=== PATIENT | female | born 1980 | race Caucasian/White ===

== ENCOUNTER → 2020-03-20 13:12 | Outpatient (ROUT) | payer OTHER, SELFPAY ==
[2020-03-20 13:48] LABS: COVID19 -Nasal RAPID Negative (Negative)
== END ==
PROVIDERS: Visit Provider Family Medicine
DX: Z20.828 Contact with and (suspected) exposure to other viral communicable diseases (principal)
CPT/HCPCS: 87635

== ENCOUNTER → 2020-07-19 13:20 | Outpatient (ROUT) | payer OTHER, SELFPAY ==
[2020-07-20 10:41] LABS: SARS CoV19 IgG Negative (Negative)
== END ==
PROVIDERS: Visit Provider Family Medicine
DX: Z20.822 Contact with and (suspected) exposure to COVID-19 (principal)
CPT/HCPCS: 86769

== ENCOUNTER → 2020-10-31 11:36 | Outpatient (ROUT) | payer OTHER, SELFPAY ==
[2020-10-31 12:20] LABS: COVID19 -Nasal RAPID Negative (Negative)
== END ==
PROVIDERS: Visit Provider Family Medicine
DX: Z20.822 Contact with and (suspected) exposure to COVID-19 (principal)
CPT/HCPCS: 87635

== ENCOUNTER → 2020-12-12 13:28 | Outpatient (ROUT) | payer OTHER, SELFPAY ==
[2020-12-12 13:58] LABS: COVID19 -Nasal RAPID Negative (Negative)
== END ==
PROVIDERS: Visit Provider Family Medicine
DX: Z20.822 Contact with and (suspected) exposure to COVID-19 (principal)
CPT/HCPCS: 87635

== ENCOUNTER → 2021-04-22 11:28 | Outpatient (ROUT) | payer OTHER, SELFPAY ==
[2021-04-22 12:13] LABS: COVID19 -Nasal RAPID Negative (Negative)
== END ==
PROVIDERS: Visit Provider Family Medicine
DX: Z20.822 Contact with and (suspected) exposure to COVID-19 (principal); R05.9 Cough, unspecified; J02.9 Acute pharyngitis, unspecified; R52 Pain, unspecified; R68.83 Chills (without fever)
CPT/HCPCS: 87635

== ENCOUNTER → 2021-08-05 10:09 | Outpatient (CLI) | payer OTHER, SELFPAY ==
--- NOTE | 2021-08-05 | DI.RAD.S_ITS ---
PROCEDURE: XR FINGER RT MIN 2V INDICATIONS: RIGHT MIDDLE FINGER INJURY TECHNIQUE: AP hand, 2 views of the 3rd finger(s) acquired. COMPARISON: None. FINDINGS: Bones: Comminuted fracture of the 3rd distal phalangeal tuft noted. Overlying soft tissue swelling without radiopaque foreign body. Soft tissues: No suspicious soft tissue calcifications. IMPRESSION: 3rd distal phalangeal tuft fracture Approved by: Eliu Mitchell M.D. on 08/05/2021 at 18:21
== END ==
PROVIDERS: PCP Family Medicine; Referring Provider Family Medicine; Visit Provider Family Medicine
DX: S62.632A Displaced fracture of distal phalanx of right middle finger, initial encounter for closed fracture (principal); X58.XXXA Exposure to other specified factors, initial encounter
CPT/HCPCS: 73140

== ENCOUNTER → 2023-01-19 12:39 | Outpatient (ROUT) | payer OTHER, SELFPAY ==
[2023-01-19 12:46] LABS: Add Manual Diff / Slide Review NO; Basophils Absolute Auto 0 /uL (0-100); Basophils Percent Auto 0.4 % (0-2); Eosinophils Absolute Auto 100 /uL (0-450); Eosinophils Percent Auto 1.2 % (2-4); Hematocrit 36.5 % (36-46); Hemoglobin 12.4 g/dL (12.0-16.0); Lymphocytes Absolute Auto 2100 /uL (1100-4500); Lymphocytes Percent Auto 29.6 % (25-40); Mean Corpuscular HGB Conc 33.9 % (30-36); Mean Corpuscular Hemoglobin 30.9 PG (26-34); Mean Corpuscular Volume 91.4 fL (80-100); Monocytes Absolute Auto 400 /uL (0-900); Monocytes Percent Auto 6.1 % (3-14); Neutrophils Absolute Auto 4500 /uL (1500-7000); Neutrophils Percent Auto 62.7 % (50-75); Platelet Count 340 X10^3/uL (150-400); Red Cell Distribution Width 12.5 % (11.6-14.8); White Blood Cell Count 7.1 X10^3/uL (4.5-11.0)
[2023-01-19 13:09] LABS: Alanine Aminotransferase 17 IU/L (<35); Albumin 4.7 g/dL (3.5-5.0); Albumin Globulin Ratio 1.8 (1.0-2.8); Alkaline Phosphatase 53 U/L (38-126); Aspartate Aminotransferase 24 IU/L (14-36); BUN Creatinine Ratio 19.7 (6-22); Bilirubin Total 0.7 mg/dL (0.2-1.3); Blood Urea Nitrogen 13 mg/dL (7-17); C-Reactive Protein Quant < 0.5 mg/dL (<1.0); Calcium 9.2 mg/dL (8.4-10.2); Carbon Dioxide 25 mmol/L (22-32); Chloride 101 mmol/L (98-107); Cholesterol 227 mg/dL (140-199); Estimated Glomerular Filt Rate > 60 mL/min (>60); Globulin 2.6 g/dL (1.7-4.1); Glucose 84 mg/dL (70-100); HDL Cholesterol 65 mg/dL (40-60); HEMOLYSIS < 15 (0-50); LDL Cholesterol Calculated 148 mg/dL (<100); Potassium 4.4 mmol/L (3.4-5.1); Sodium 135 mmol/L (137-145); Total Protein 7.3 g/dL (6.3-8.2); Triglycerides 71 mg/dL (35-150)
[2023-01-19 13:22] LABS: Erythrocyte Sedimentation Rate 6 MM/HR (0-20)
[2023-01-19 13:38] LABS: Thyroid Stimulating Hormone 2.06 uIU/mL (0.47-4.68)
[2023-01-19 13:42] LABS: Ferritin 50 ng/mL (6-137)
[2023-01-19 13:44] LABS: Iron 126 ug/dL (37-170)
[2023-01-19 14:13] LABS: Folate 8.5 ng/mL (2.76-20.0); Vitamin B12 250 pg/mL (239-931)
[2023-01-19 16:57] LABS: Vitamin D 25 Hydroxy (D3) 40.3 ng/mL (30.0-100.0)
[2023-01-22 17:36] LABS: ANA Screen, IFA Negative (.)
== END ==
PROVIDERS: PCP Family Medicine; Visit Provider Family Medicine
DX: Z00.00 Encounter for general adult medical examination without abnormal findings (principal); R53.83 Other fatigue; R43.0 Anosmia
CPT/HCPCS: 80053; 80061; 82306; 82607; 82728; 82746; 83540; 84443; 85025; 85651; 86038; 86140

== ENCOUNTER → 2023-03-19 14:51 | Outpatient (ROUT) | payer OTHER, SELFPAY ==
[2023-03-19 17:08] LABS: HIV 1 & 2 Ab/Ag 4th Gen Combo NEGATIVE (NEGATIVE); Hep C Virus Ab w/Reflex Quant NEGATIVE s/c (NEGATIVE)
[2023-03-20 02:37] LABS: RPR Screen Non Reactive (Non Reactive)
[2023-03-24 08:36] LABS: Hepatitis Be Antibody Negative (Negative)
== END ==
PROVIDERS: PCP Family Medicine; Visit Provider Family Medicine
DX: Z11.3 Encounter for screening for infections with a predominantly sexual mode of transmission (principal)
CPT/HCPCS: 86592; 86695; 86696; 86707; 86803; 87389